=== PATIENT | female | born 1980 | race Asian ===

== ENCOUNTER 2017-06-16 12:27 | Outpatient (CLI) | payer OTHER ==
[~2017-06-16] VITALS: Ht 144.8 cm; Wt 65.9 kg
[~2017-06-16 12:27] MED LIST: AZIT250T6 PO; IBUP-1542 PO
[2017-06-16 12:46] VITALS: Ht 144.8 cm; Wt 65.9 kg
[2017-06-16 12:47] VITALS: BP 119/74; PULSE 75
[2017-06-16] MEDS ORDERED: FERR325C PO (12:48)
[2017-06-16] MEDS ORDERED: PRENAT PO (12:48)
--- NOTE | 2017-06-16 13:07 | RADRPT ---
PROCEDURE: OB ultrasound for biophysical profile CLINICAL INDICATION: Poor tone. TECHNIQUE: Multiple sonographic images of the pelvis were obtained. Transabdominal views of the g ravid uterus are available for review. The images were reviewed on a PACS workstation. COMPARISON: None FINDINGS: breathing movement = 2/2 tone = 2/2 motion = 2/2 LUC = 2/2 LUC = 12.0 cm Single live intrauterine with cardiac activity of 141 bpm. position is cephal ic. The placenta is anterior. IMPRESSION: 1. Single live intrauterine gestation. 2. Biophysical profile = 8/8. 3. LUC = 12.0 cm. RPTAT: HH .Shabnam Gilman MD, MD Date Time Electronically viewed and signed by .Shabnam Gilman MD, on 06/16/2017 13:06 .G/
--- NOTE | 2017-06-16 13:14 | RADRPT ---
PROCEDURE: US OB. CLINICAL INDICATION: Size and dates TECHNIQUE: Multiple sonographic images of the pelvis and gravid uterus were obtained. The images were reviewed on a PACS workstation. COMPARISON: Same day FINDINGS: There is a single viable intrauterine gestation. Cardiac activity is present with 148 beats per min lina. There is a vertex presentation. The placenta is anterior. There is no evidence for an abruption or placenta previa. Measurements were made in order to determine age. The results are as follows: BPD =8.7 cm HC =31.3 cm AC =33.1 cm FL =6.9 cm Estimated gestational age of approximately 35 weeks and 5 days based on ultrasound measurements. Clinical age: 40 weeks and 1 day. The estimated date of delivery is 07/16/17, based on ultrasound measurements. The EFW = 2879 g, 5%, based on LMP age. RPTAT: AA IMPRESSION: Single viable intrauterine gestation of approximately 35 weeks and 5 days based on ultrasound measu rements. Smaller than clinical age by 4 weeks. .Saeed Carolina MD, MD Date Time Electronically viewed and signed by .Saeed Carolina MD, on 06/16/2017 13:14 .S/
--- NOTE | 2017-06-16 14:39 | PN ---
Triage Information Date/Time 37 years old female 1 para 0 EDC June 15, 2017 40 weeks and 1 day referred to triage unit for biophysical profile estimated weight, the results of biophysical 08/18 LUC 12 ,estimated weight 2879, patient discharged home with kick count instructions return to [facility] triage unit in 2 days to repeat NST LUC, labor instructions given Reason for visit: 40 weeks 1 day Weeks of Gestation 40 weeks 11/15 /Para 1 para 0 Diabetes: none Hypertention: none Objective Vital Signs Date Time Temp Pulse Resp B/P Pulse Ox O2 Delivery O2 Flow Rate FiO2 06/16/17 12:47 97.5 75 119/74 Heart Rate: 130's Contractions: >10 Minutes Apart Exam Pelvic examination cervix closed 40% effaced vertex at -2 station Disposition: Discharge Assessment/Plan Labor instructions given she was provided with kick count form advised return to hospital when contractions are stronger and closed other mooney repeat biophysical profile in 48 hours GUILLERMO ADAM MD Jun 16, 2017 14:39
--- NOTE | 2017-06-16 14:53 | TRIAGE ---
OB Triage Datetime Report Generated by CPN: 06/16/2017 14:53 Datetime: 06/16/2017 14:32 Labor Evaluation Frequency: 7-10 Monitor Mode: External Duration (sec)2399: 50-70 Quality: Mild Pattern: Normal: <= 5 Contractions in 10 Minutes Resting Tone Goodyear: Relaxed Heart Rate FHR Baseline Rate: 130 Monitor Mode: External US Variability: Moderate 6-25 bpm Accelerations: 10X10 Decelerations: None Category: Category I Pain Assessment Pain Scale: 0 Pain Presence: None/Denies Pain Type: N/A Pain Goal: 3 Pain Relief Measures: Comfort Measures Datetime: 06/16/2017 14:29 Stage of : OB Triage Datetime: 06/16/2017 13:57 Stage of : OB Triage Datetime: 06/16/2017 13:40 Labor Evaluation Frequency: 7-10 Monitor Mode: External Duration (sec)2399: 50-70 Quality: Mild Resting Tone Goodyear: Relaxed Heart Rate FHR Baseline Rate: 130 Monitor Mode: External US Variability: Moderate 6-25 bpm Accelerations: 10X10 Decelerations: None Category: Category I Pain Assessment Pain Scale: 0 Pain Presence: None/Denies Pain Type: N/A Pain Goal: 3 Pain Relief Measures: Comfort Measures Datetime: 06/16/2017 12:43 Stage of : OB Triage Assessment Type: Triage Maternal Assessment Level of Consciousness: Fully Conscious DTR's/Clonus: DTRs 2+; No Clonus Headache: Denies Blurred Vision: No Respiratory Effort: Unlabored; Regular Rhythm; Equal Expansion Breath Sounds, Left: Clear and Equal Breath Sounds, Right: Clear and Equal Nausea/Vomiting: Denies RUQ Epigastric Pain: Denies Facial Edema: None Temperature Route: Axillary Fall Risk Assessment History of Falling: (0) No Secondary Diagnosis: (0) No Ambulatory Aid: (0) Bedrest/Nurse Assist IV Therapy: (0) No Gait: (0) Normal/Bedrest/Immobile Mental Status: (0) Oriented to Own Ability Fall Score: 0 Fall Risk Score Definition: No Risk: No action required Labor Evaluation Frequency: 0 Monitor Mode: External Resting Tone Goodyear: Relaxed Heart Rate FHR Baseline Rate: 135 Monitor Mode: External US Variability: Moderate 6-25 bpm Decelerations: None Pain Assessment Pain Scale: 0 Pain Presence: None/Denies Pain Type: N/A Pain Goal: 3 Pain Relief Measures: Comfort Measures Datetime: 06/16/2017 12:41 Time of Arrival: 06/16/2017 12:35 EGA: 40.1 Arrived By: Ambulatory Arrived From: Office Chief Complaint: SENT FROM DR OFFICE FOR POST DATES, BPP/EFW, DENIES LEAKING, BLEEDING OR UC'S Movement: Decreased Contractions: Denies/Absent Rupture of Membranes: Denies Vaginal Bleeding: None Vaginal Discharge: Denies Recent Sexual Intercouse: Denies Abdominal Trauma: Not Applicable Patient Complaints: None Time Provider Notified: 06/16/2017 14:55 Provider Notified: KIA Initial Plan: MONITOR, BPP/EFW
== END 2017-06-16 14:45 | disposition home or self-care (01) ==
LOC: OBT 12:27 → L-D 12:27 → OBT 14:45
PROVIDERS: ATTEND Obstetrics & Gynecology
DX: O62.9 Abnormality of forces of labor, unspecified (principal); Z3A.40 40 weeks gestation of pregnancy
CPT/HCPCS: 76815; 76818; Z7500; G0463

== ENCOUNTER 2017-06-18 11:57 | Outpatient (CLI) | payer OTHER ==
[~2017-06-18] VITALS: Ht 144.8 cm; Wt 66.3 kg
[~2017-06-18 11:57] MED LIST changes: +FERR325C PO; +PRENAT PO
[2017-06-18 12:04] VITALS: BP 112/79; PULSE 96; Ht 144.8 cm; Wt 66.3 kg
[2017-06-18] MEDS ORDERED: LEVO100T87 PO (12:06)
--- NOTE | 2017-06-18 12:52 | RADRPT ---
PROCEDURE: US biophysical profile with amniotic fluid index CLINICAL INDICATION: Post dates TECHNIQUE: Images were obtained during real time scanning of the maternal abdomen using a curved t ransducer. COMPARISON: A 06/28/2017 FINDINGS: There is a single live intrauterine fetus in a cephalic presentation with a heart rate may 152 beats per minute. There is an anterior placenta which is grade 2. The amniotic fluid index measures 14.3 cm. This falls between the 50th and 95th percentile and is t herefore normal. Biophysical profile scoring: Tone: 2/2 Respiration: 2/2 Gross body movement: 2/2 LUC: 2/2 Biophysical profile score: 8/8 IMPRESSION: 1. Single live intrauterine fetus, cephalic presentation. 2. Anterior placenta, grade 2. 3. Amniotic fluid index: Normal 4. Biophysical profile score: 8/8, unchanged. Physician Bao Date Time Electronically viewed and signed by Physician Bao on 06/18/2017 12:52 RH/
--- NOTE | 2017-06-18 14:07 | PN ---
Triage Information Date/Time Reason for visit: Uterine contractions Weeks of Gestation 40 weeks 3 day /Para Diabetes: none Objective Vital Signs Date Time Temp Pulse Resp B/P Pulse Ox O2 Delivery O2 Flow Rate FiO2 06/18/17 12:04 98.1 96 112/79 Heart Rate: 130's Contractions: >10 Minutes Apart Exam Cervix long and closed vertex at -1 -2 station Disposition: Discharge Assessment/Plan Patient came to the hospital for feeling mild contraction had biophysical profile 8 out of 8 reactive NST mild contraction labor instructions given to the patient advised to return to the hospital when contractions are stronger and closer together GUILLERMO ADAM MD Jun 18, 2017 14:07
--- NOTE | 2017-06-19 16:28 | NSTRPT ---
NST Information Datetime Report Generated by CPN: 06/19/2017 16:28 Datetime: 06/16/2017 10:15 NST Information EGA: 40.1 Test Number: 10 Time on Monitor: 06/16/2017 10:51 Time off Monitor: 06/16/2017 11:24 NST Duration (Min): 33 Reason for NST: Diabetes Mellitus; Other Reason for NST Other: A2DM Test and Monitor Explained: Monitor Explained; Test Explained; Verbalized Understanding Temp : 98.2 Pulse: 82 Resp: 18 SBP: 107 DBP: 74 Test Evaluation NST Interventions: None Patient States Movement: Present Contraction Frequency: X2 FHR Baseline : 130 Variability: Moderate 6-25bpm Accelerations: 15X15 Decelerations: None FHR Category: Category I NST Results: Reactive Comments: Pt to U/S, LUC 18.1cm, CEPHALIC FBS 116 PT STATES EATING AT 4AM. Pt instructed to eat a high protein snack at bedtime to avoid ea rly morning hunger. Pt verbalizes understanding. 1130-Pt discharged home with term labor precautions, discussed kick counts, follow-up NST/A FI appointment given, pt verbalizes understanding and denies any further questions. Electronically Signed By E-Signature: with User ID: [id number] Datetime: 06/12/2017 11:10 NST Information EGA: 39.4 NST Duration (Min): 21 Datetime: 06/09/2017 09:54 NST Information EGA: 39.1 NST Duration (Min): 21 Datetime: 06/05/2017 10:00 NST Information EGA: 38.4 NST Duration (Min): 28 Datetime: 06/02/2017 13:25 NST Information EGA: 38.1 NST Duration (Min): 36 Datetime: 05/25/2017 13:47 NST Information EGA: 37.0 NST Duration (Min): 23 Datetime: 05/21/2017 10:28 NST Information EGA: 36.3 NST Duration (Min): 39 Datetime: 05/19/2017 13:21 NST Information EGA: 36.1 NST Duration (Min): 21 Datetime: 05/13/2017 09:36 NST Information EGA: 35.2 NST Duration (Min): 37 Datetime: 05/08/2017 09:29 NST Information EGA: 34.4 Datetime: 05/08/2017 09:25 NST Duration (Min): 30
== END 2017-06-18 14:05 | disposition home or self-care (01) ==
LOC: OBT 11:57 → L-D 11:58 → OBT 14:05
PROVIDERS: ATTEND Obstetrics & Gynecology
DX: O62.9 Abnormality of forces of labor, unspecified (principal)
CPT/HCPCS: 76818; Z7500; G0463

== ENCOUNTER 2017-06-20 09:10 | Inpatient (IN) | END 2017-06-24 17:19 | disposition home or self-care (01) | DRG 765 | DX: O48.0 Post-term pregnancy (principal); O24.92 Unspecified diabetes mellitus in childbirth; Z3A.40 40 weeks gestation of pregnancy; O76 Abnormality in fetal heart rate and rhythm complicating labor and delivery; O99.284 Endocrine, nutritional and metabolic diseases complicating childbirth; E03.9 Hypothyroidism, unspecified; Z37.0 Single live birth ==